=== PATIENT | male | born 1960 | race Caucasian/White ===

== ENCOUNTER 2020-09-26 20:32 | Observation (INO) | payer OTHER, SELFPAY ==
--- NOTE | ~2020-09-26 | XR_ITS ---
EXAMINATION: XR chest 1V portable INDICATION: Cough TECHNIQUE: Portable AP chest at 2223 hours COMPARISON: None available FINDINGS: The lungs are free of acute opacities. There is no pleural effusion or pneumothorax. The he art size is upper limits of normal for technique. IMPRESSION: 1. No acute cardiopulmonary abnormality. Reviewed, dictated and finalized at location A. ER PRODUCTION MACHINE OPERATOR
--- NOTE | ~2020-09-26 | CT_ITS ---
EXAMINATION: CT brain wo con INDICATION: Headache COMPARISON: None TECHNIQUE: Standard unenhanced head CT. The dose-length product (DLP) was 529.67 mGy-cm. The mA was a djusted according to patient size. Iterative reconstruction technique was employed. FINDINGS: There is no intracranial hemorrhage, acute infarction, or abnormal mass lesion. The ventric les are normal. There is no abnormal mass effect or midline shift. The bass-white matter differentiat ion is normal. The basal cisterns are patent. There appear to be changes of scleral buckle procedure in the left globe. There is mild mucosal thickening of the paranasal sinuses. IMPRESSION: 1. No acute intracranial abnormality. Reviewed, dictated and finalized at location A. LRY DIPPER
--- NOTE | ~2020-09-26 | CT_ITS ---
EXAMINATION: CTA chest PE protocol DATE: 09/26/2020 23:53 INDICATION: Cough and dizziness TECHNIQUE: Computed tomography angiography (CTA) of the chest was performed with 100 mL Omnipaque-350 intravenous contrast timed to evaluate the pulmonary arteries. Coronal maximum intensity projection 3D-reconstructions were created by the technologist. The dose-length product (DLP) was 288.72 mGy-cm. Automated exposure control and iterative reconstruction technique were employed. COMPARISON: None. FINDINGS: The pulmonary arteries are moderately well-opacified. Motion artifact slightly limits the e xamination as well. No pulmonary embolism is identified. Patchy groundglass opacities are scattered t hroughout the lungs. There is no pleural effusion or pneumothorax. No pathologically enlarged thoraci c lymph nodes are identified. The heart size is normal. There are bridging osteophytes at multiple le vels in the spine, consistent with diffuse idiopathic skeletal hyperostosis (DISH). IMPRESSION: 1. Patchy groundglass opacities throughout the lungs, likely infectious or inflammatory. No pulmonary embolus identified, sensitivity limited by contrast bolus timing and motion artifact. Reviewed, dictated and finalized at location A. CHISE SALES DIRECTOR IMPRESSION: 1. Patchy groundglass opacities throughout the lungs, likely infectious or infl ammatory. No pulmonary embolus identified, sensitivity limited by contrast bolu s timing and motion artifact.
[2020-09-26 20:41] VITALS: BP 177/102; PULSE 108; RESP 20; TEMP 37.1; O2SAT 99
--- NOTE | 2020-09-26 21:08 | ECG_ITS ---
Measurements Intervals [place] Rate: 89 P: 52 MD: 148 QRS: 60 QRSD: 101 T: 53 QT: 339 QTc: 414 Interpretive Statements SINUS RHYTHM POSSIBLE LEFT ATRIAL ENLARGEMENT BASELINE ARTIFACT- II, III, AVR, AVL, AVF, V1 BORDERLINE ECG Electronically Signed On 09-28-2020 7:17:36 DIRECTOR CONTENT MARKETING by Ilia Weston D.O.
[2020-09-26 21:52] LABS: Basophils Absolute Auto 0.02 K/mm3 (0.00-0.10); Basophils Percent Auto 0.3 % (0.0-1.0); Eosinophils Absolute Auto 0.08 K/mm3 (0.02-0.50); Eosinophils Percent Auto 1.3 % (1.0-6.0); Hematocrit 42.9 % (40.0-54.0); Hemoglobin 14.4 g/dL (14.0-18.0); Immature Granulocyte Absolute 0.02 K/mm3 (0.00-0.00); Immature Granulocyte Percent A 0.3 % (0.0-0.0); Lymphocytes Absolute Auto 2.28 K/mm3 (1.10-4.50); Lymphocytes Percent Auto 38.4 % (18.0-42.0); Mean Corpuscular HGB Conc 33.6 g/dL (32.0-36.0); Mean Corpuscular Hemoglobin 30.9 pg (27.0-31.0); Mean Corpuscular Volume 92.1 fL (78.0-102.0); Mean Platelet Volume 8.8 fl (8.7-11.0); Monocytes Absolute Auto 0.54 K/mm3 (0.10-0.90); Monocytes Percent Auto 9.1 % (2.0-11.0); Neutrophils Percent Auto 50.6 % (50.0-70.0); Platelet Count Result 310 K/mm3 (150-420); Red Blood Count 4.66 M/mm3 (4.70-6.10); Red Cell Distribution Width 13.3 % (11.6-14.4); White Blood Count 5.9 K/mm3 (4.8-10.8)
[2020-09-26 22:08] LABS: D Dimer 0.54 mg/L (0.19-0.50)
[2020-09-26 22:10] LABS: BNP 11.5 pg/mL (0-100)
[2020-09-26 22:18] LABS: Alanine Aminotransferase 48 U/L (16-63); Albumin Level 4.3 g/dL (3.4-5.0); Alkaline Phosphatase 64 U/L (46-116); Anion Gap 11 mmol/L (8-16); Aspartate Amino Transferase 24 U/L (15-37); Bilirubin,Total 0.2 mg/dL (0.00-1.00); Blood Urea Nitrogen 21 mg/dL (7-18); Calcium 9.2 mg/dL (8.5-10.1); Carbon Dioxide 28 mmol/L (21-32); Chloride 100 mmol/L (98-108); Estimated CRCL calculation 65 ml/min; Estimated Glomerular Filt Rate > 60; Glucose 123 mg/dL (70-99); Osmolality Calculated 292 mOsm/kg (285-295); Potassium 3.8 mmol/L (3.5-5.1); Sodium 139 mmol/L (136-145); Total Protein 8.1 g/dL (6.4-8.2)
[2020-09-26 22:20] LABS: Troponin I 7.5 ng/L (0.00-60.4)
[2020-09-26 22:32] LABS: SARS-CoV-2 Ag Negative (Negative)
--- NOTE | 2020-09-26 23:17 | PC.NURSE ---
pt up and ambulated to bathroom without dizziness or nausea. returned to room.
[2020-09-26 23:40] LABS: INR 0.9; Partial Thromboplastin Time 27.9 SEC (23.90-30.70); Prothrombin Time 10.3 Seconds (9.50-12.10)
[2020-09-27] MEDS: ASPIRIN 81 MG CHEWABLE TABLET 324 MG PO (00:07)
--- NOTE | 2020-09-27 00:34 | ED.DIZZY ---
HPI - Dizziness General Chief Complaint: Dizziness Stated Complaint: unknown Source: patient and family Mode of arrival: EMS Limitations: no limitations History of Present Illness HPI Narrative: Patient comes in complaining of vertigo, the room spinning and says while this was going on prior to discharge he felt weak and presyncopal. He also states he felt as if he were drunk when the vertigo started, and had an altered sense of balance. This sensation that he has been drunk has decreased some, in severity, but he remains with a sensation that he is impaired. He had a mild generalized sensation of weakness with the onset of this, just prior to arrival, but that has now passed. MD elicited complaint: dizziness Pertinent past history: other (TIA) Onset (ago): minute(s) (30 minutes) Timing: sudden onset Severity: moderate Description: sense of movement and lightheadedness Context: anxiety History of similar symptoms: No Exacerbating factors: nothing Relieving factors: rest Associated symptoms: denies other symptoms Related Data Home Medications Medication Instructions Recorded Confirmed No Home Medications 09/26/20 09/26/20 Allergies Allergy/AdvReac Type Severity Reaction Status Date / Time Penicillins Allergy Mild Unknown Verified 09/26/20 20:56 Review of Systems Constitutional: Constitutional: Reports no additional constitutional complaints Eyes: Eyes: Reports no additional eye complaints ENT: Reports system reviewed and no additional complaints, except as documented Cardiovascular: Cardiovascular: Reports no additional cardiovascular complaints Respiratory: Respiratory: Reports no additional respiratory complaints Gastrointestinal: Gastrointestinal: Reports no additional gastrointestinal complaints Genitourinary: Genitourinary: Reports no additional male genitourinary complaints Musculoskeletal: Musculoskeletal: Reports no additional musculoskeletal complaints Integumentary/Breasts: Skin/Breast: Reports system reviewed and no additional complaints, except as docu Neurologic: Reports system reviewed and no additional complaints, except as documented Psychiatric: Psychiatric: Reports no additional psychiatric complaints Endocrine: Endocrine: Reports no additional endocrine complaints Hematologic/Lymphatic: Hematologic/Lymphatic: Reports no additional hematologic/lymphatic complaints Allergic/Immunologic: Allergic/Immunologic: Reports no additional allergic/immunologic complaints PMFSH Past Medical History Medical History TIA (transient ischemic attack) Surgical History Surgical History (Updated 09/27/20 @ 00:46 by Hoang Avila MD) No significant past surgical history Family History Family History (Updated 09/27/20 @ 00:48 by Hoang Avila MD) Mother No significant past medical history Social History Social History (Updated 09/27/20 @ 00:50 by Hoang Avila MD) Smoking status: Never smoker Alcohol intake: never Gender identity (if verbalized by the patient): Male Exam Narrative: Exam Narrative: This gentleman resents with no focal weakness, no nystagmus, but with a sensation of feeling drunk. Const: General: no acute distress and alert Orientation/consciousness: patient oriented x3 HENMT: Head: normal to inspection Ears: TM's normal bilaterally and external ear abnormal General nose exam: Normal external nose present Face and sinus: normal facial exam Mouth: Yes moist mucous membranes Eyes: Conjunctivae: conjunctivae normal Neck: Neck: normal visual inspection and no lymphadenopathy Chest: Chest palpation & inspection: normal inspection of the chest Resp: Effort & Inspection: normal respiratory effort Auscultation: clear to auscultation bilaterally Cardio: Rate: regular rate Rhythm: regular rhythm GI: Auscultation: normal bowel sounds Skin: General skin exam: normal color Rashes: no rashes Neuro:
[2020-09-27 00:35] VITALS: BP 154/89; PULSE 91; RESP 20; TEMP 36.6; O2SAT 97
--- NOTE | 2020-09-27 00:48 | PC.NURSE ---
0045 pt to floor with MADAY Pierce per wheelchair. departed with all belongings, phone, and charge cord. no complaints of dizziness. pt is tired as he is an early to bed and early to rise kind of person per pt.
[2020-09-27 00:50] VITALS: BMI 27.5
--- NOTE | 2020-09-27 00:56 | PC.NURSE ---
Here for observation, to room 226, oriented to room, states here for evaluation for TIA, is alert and oriented x4, no pain denies any weakness, unknown how long admit will be
[2020-09-27 01:00] VITALS: BP 131/80; PULSE 84; PULSE 90; RESP 18; TEMP 36.8; O2SAT 96
--- NOTE | 2020-09-27 01:11 | PC.NURSE ---
Patient set u pfor shower, will place telemetry on when done
--- NOTE | 2020-09-27 01:44 | PC.NURSE ---
No pain, telemetry SR, resting quietly in bed, full rom noted to all extremities, no deficits noted
--- NOTE | 2020-09-27 03:00 | PC.NURSE ---
No pain, no sob, telemetry SR
[2020-09-27 03:43] VITALS: BP 114/72; PULSE 81; RESP 18; TEMP 36.7; O2SAT 95
--- NOTE | 2020-09-27 05:06 | PC.NURSE ---
Resting in bed, neuro checks within normal limits, telemetry SR, no pain and no sob noted
--- NOTE | 2020-09-27 06:22 | PC.NURSE ---
No chest pain, no sob, no neuro deficits noted, telemetry SR
[2020-09-27 08:00] VITALS: BP 123/77; PULSE 79; PULSE 88; RESP 18; TEMP 37.1; O2SAT 95
[2020-09-27] MEDS: ESCITALOPRAM OXALATE 10 MG TABLET 5 MG BY MOUTH (10:09)
[2020-09-27] MEDS: ASPIRIN 325 MG ENTERIC TABLET PO (10:10)
[2020-09-27] MEDS: ENOXAPARIN 40 MG/0.4 ML SYRINGE SUB-Q (10:10)
[2020-09-27 10:21] LABS: Amphetamine Screen Urine Negative (Negative); Barbiturate Screen Urine Negative (Negative); Benzodiazepines Screen Urine Negative (Negative); Cannabinoid Screen Urine Positive (Negative); Cocaine Screen Urine Negative (Negative); Methadone Screen Urine Negative (Negative); Opiate Screen Urine Negative (Negative); Phencyclidine Screen Urine Negative (Negative)
[2020-09-27 12:00] VITALS: PULSE 85
--- NOTE | 2020-09-27 12:05 | PM.SD ---
Same Day Admit/Disch: HPI History of Present Illness Chief complaint: unknown Narrative: Yuri Mallory is a 60 year old male came in for having dizzy episodes that lasted approximately 45 minutes. Patient states it felt like he had been drinking as the room was spinning. Patient states that he does not drink any does not do any drugs however his UDS was positive for marijuana. Upon evaluation this morning patient states that he has had no more symptoms denies any visual changes coordination issues dizziness speech problems breathing issues heart issues abdominal issues. [facility] Past Medical History Medical History (Updated 09/27/20 @ 12:18 by GONZALZE Xiong) Anxiety Dizziness TIA (transient ischemic attack) Surgical History Surgical History No significant past surgical history Family History Family History Mother No significant past medical history Social History Social History Smoking status: Never smoker Second hand tobacco smoke exposure: No Alcohol intake: never Substance use: never Gender identity (if verbalized by the patient): Male Spiritual care concerns: No Same Day Admit/Disch: Med Pre-admit Medications Home Medications Medication Instructions Recorded Confirmed Type [id number]-tenof alafen 1 tablet PO DAILY 09/27/20 09/27/20 History [Genvoya] escitalopram oxalate 5 mg DAILY 09/27/20 09/27/20 History Exam Const: General: cooperative, comfortable, no acute distress, alert, awake and Physically active Nutritional Appearance: average body habitus HENMT: Head: normal to inspection Ears: hearing grossly normal bilaterally General nose exam: Normal external nose present Face and sinus: normal facial exam Mouth: Yes Normal oral and palatal mucosa present Throat: posterior oropharynx normal Eyes: General: appearance normal, both eyes and all related structures Visual Freitas: normal visual freitas by confrontation Alignment and Position: alignment normal Eyelids: eyelids normal Pupils: Equal, round and reactive pupils present EOM: EOMs intact bilaterally Direct Ophthalmoscopy: normal light reflex Resp: Effort & Inspection: normal respiratory effort and able to speak in complete sentences Auscultation: clear to auscultation bilaterally, no crackles, no rales, no rhonchi and no wheezes Cardio: Rate: regular rate Heart sounds: S1 normal heart sound present and S2 normal heart sound present Neuro: General: oriented to person, oriented to place and oriented to time Cranial nerves: Yes CN's II-XII intact bilaterally Cognition (Neuro): normal cognition Speech: normal speech Coordination: [id number] test normal Extrem: General: full ROM and no pedal edema Psych: Appearance: grossly normal Speech and movement: Normal speech and movement present Affect: normal affect Attitude: cooperative Thought process: Normal thought process present Thought content: Yes Normal thought content present DS: Data Data Completed and Pending Labs on day of discharge: Labs from last 24 hours 09/27/20 09/26/20 09/26/20 09:35 23:25 21:42 WBC RBC Hgb Hct MCV MCH MCHC RDW Plt Count MPV Immature Gran % (Auto) Neut % (Auto) Lymph % (Auto) Terry % (Auto) Eos % (Auto) Baso % (Auto) Lymph # (Auto) Terry # (Auto) Eos # (Auto) Baso # (Auto) Abs Immat Gran (auto) Absolute Neuts (auto) Absolute Nucleated RBC Nucleated RBC % PT 10.3 INR 0.9 APTT 27.9 D-Dimer Sodium Potassium Chloride Carbon Dioxide Anion Gap BUN Creatinine Estim Creat Clear Calc Estimated GFR Glucose Calculated Osmolality Calcium Total Bilirubin AST ALT Alkaline Phosphatase Troponin I B-Natri
--- NOTE | 2020-09-27 13:13 | PC.NURSE ---
Patient dressing. Discharge complete
--- NOTE | 2020-09-29 11:29 | PC.NURSE ---
Unable to contact for discharge call back.
== END 2020-09-27 13:30 | disposition home or self-care (01) ==
LOC: CHSED 20:37 → CHS2ND 09-27 00:58
PROVIDERS: Nurse Practitioner Family; Admitting Provider Emergency Medicine; Emergency Provider Emergency Medicine; Visit Provider Emergency Medicine
DX: R42 Dizziness and giddiness (principal); F41.9 Anxiety disorder, unspecified; Z20.822 Contact with and (suspected) exposure to COVID-19; Z86.73 Personal history of transient ischemic attack (TIA), and cerebral infarction without residual deficits
CPT/HCPCS: 36415; 70450; 71045; 71275; 80053; 80307; 83880; 84484; 85025; 85380; 85610; 85730; 87426; 93005; 96372; 99285; A9270; C9803; G0378; J1650; Q9967

== ENCOUNTER 2020-11-16 12:27 | Outpatient (CLI) | payer OTHER, SELFPAY ==
--- NOTE | 2020-11-16 | ECHO_ITS ---
Patient Info Name: Yuri Mallory Age: 60 years : 1960 Gender: Male Ht: 68 in Wt: 179 lbs BSA: 1.99 m2 HR: 72 bpm BP: 152 / 104 mmHg Heart Rhythm: Sinus Rhythm Technical Quality: Good Exam Date: 11/16/2020 12:56 PM Exam Location: [facility] Patient Status: Outpatient Admit Date: 11/16/2020 Staff Ordering Physician: ShakirCheryl Corrugator Operator Helper: Margarita Ramirez RDCS Attending Provider: Shakir, Cheryl LOMELI Referring Physician: Shakir YIN; Exam Type: CA echo doppler color flow Study Info Indications R01.1 - Cardiac murmur, unspecified Complete two-dimensional, color flow and Doppler transthoracic echocardiogram is performed. Summary 1. Complete two-dimensional, color flow and Doppler transthoracic echocardiogram is performed. 2. The mitral valve has normal leaflets. 3. There is trace mitral valve regurgitation. 4. Otherwise unremarkable exam. Left Ventricle Left ventricular chamber dimension is normal. Left ventricular systolic function is normal, estimated at 55-60%. The left ventricular diastolic function is grade I diastolic dysfunction. Right Ventricle Right ventricular chamber dimension is normal. Left Atria Left atrial chamber dimension is normal. Right Atria Right atrial chamber dimension is normal. Aortic Valve The aortic valve is normal. Pulmonic Valve The pulmonic valve is normal. Mitral Valve The mitral valve has normal leaflets. There is trace mitral valve regurgitation. Tricuspid Valve The tricuspid valve leaflets are normal. Pericardium/Pleural The pericardium appears normal. Aorta The aortic root size at the sinus of Valsalva is normal. Left Ventricular Outflow Tract Name Value Normal LVOT 2D LVOT Diameter 1.9 cm LVOT Doppler LVOT Peak Gradient 6 mmHg LVOT Mean Gradient 3 mmHg LVOT VTI 23 cm LVOT VTI/AV VTI Ratio 1.0 LVOT Stroke Volume 64 ml LVOT CO 5.2 l/min LVOT CI 2.6 l/min/m2 Pulmonic Valve Name Value Normal RVOT Doppler RVOT Peak Gradient 2 mmHg PV Doppler PV Peak Gradient 3 mmHg Mitral Valve Name Value Normal MV Doppler MV Decel [place] 382 cm/s2 MV PHT 43 ms MV Area (PHT) 5.1 cm2 4.0-5.0
--- NOTE | 2020-11-16 14:10 | PCCARD ---
PATIENT STATES HIS BIRTHDAY IS 1960. PHYSICIAN ORDER AND PATIENTS INSURANCE ([employer] [facility]) HAS HIS BIRTHDAY 09/05/1961. PATIENT STATES HE HAS TRIED NUMEROUS TIMES TO HAVE THE INSURANCE CHANGE HIS BIRTHDAY TO CORRECT BIRTHDAY OF 1960. HE HAS GIVEN COPIES OF HIS CERTIFICATE TO [facility] BUT THEY STILL HAVE NOT/WILL NOT CORRECT IN THEIR RECORDS.
== END 2020-11-16 12:28 | disposition home or self-care (01) ==
LOC: ANHCARD 12:30
PROVIDERS: Visit Provider Physician Assistant
DX: R01.1 Cardiac murmur, unspecified (principal)
CPT/HCPCS: 93306

== ENCOUNTER 2021-01-29 16:07 | Outpatient (CLI) | payer OTHER, SELFPAY ==
--- NOTE | ~2021-01-29 | XR_ITS ---
EXAMINATION: SACRUM/COCCYX DATE: 01/29/2021 16:29 INDICATION: Coccyx pain status post recent fall TECHNIQUE: Three views sacrum/coccyx FINDINGS: No prior studies for comparison. There is no displaced fracture of the sacrum. The coccyx demonstrates overall normal morphology with out acute angulation.There is moderate lower lumbar spondylosis. IMPRESSION: 1. No acute displaced osseous abnormality of the sacrum. Suspicion for occult or nondisplaced sacral fracture can either be evaluated with CT or MRI. 2. Grossly normal morphology to the coccyx without acute angulation. However, due to the wide range of normal variation of the coccyx, acute injury would be best evaluated by clinical examination and patient's symptoms. Reviewed, dictated and finalized at location A.
== END 2021-01-29 16:08 | disposition home or self-care (01) ==
LOC: ANHIMG 16:10
PROVIDERS: PCP Physician Assistant; Visit Provider Physician Assistant
DX: M53.3 Sacrococcygeal disorders, not elsewhere classified (principal); M47.816 Spondylosis without myelopathy or radiculopathy, lumbar region
CPT/HCPCS: 72220

== ENCOUNTER 2023-11-03 10:27 | Emergency (ER) | payer OTHER, SELFPAY ==
--- NOTE | ~2023-11-03 | XR_ITS ---
EXAMINATION: XR wrist RT min 3V DATE: 11/03/2023 11:55 INDICATION: Right wrist pain. Ganglion cyst. TECHNIQUE: 4 views of right wrist were obtained. COMPARISON: None. FINDINGS: Bone alignment is normal. No fracture. There is severe osteoarthritis of first carpometacar pal joint and triscaphe joint. IMPRESSION: 1. Polyarticular osteoarthritis. Reviewed, dictated and finalized at location A. CIATE PROFESSOR OF PSYCHOLOGY
[2023-11-03 10:50] VITALS: BP 147/88; PULSE 82; RESP 16; TEMP 36.4; O2SAT 99
--- NOTE | 2023-11-03 11:18 | ED.SKABFB ---
HPI - Skin/Abscess/Foreign Bdy General Chief complaint: Skin/Abscess/Foreign Body Stated complaint: CYST Time Seen by Provider: 11/03/23 10:49 Source: patient Mode of arrival: ambulatory Limitations: no limitations History of Present Illness HPI narrative: Yuri is a 63-year-old male patient presenting to the ER today with complaints of a cyst to his right volar wrist. He reports that is been going on for about a month or 2. States his becoming bigger and more painful in size. Is having some radiation of pain to his thumb. Related Data Home Medications Medication Instructions Recorded Confirmed elviteg 150 mg-cob 150 mg-emtricit 1 tablet PO DAILY 09/27/20 09/27/20 200 mg-tenofo alafenam 10 mg tablet (Genvoya) escitalopram oxalate 5 mg tablet 5 mg DAILY 09/27/20 09/27/20 Allergies Allergy/AdvReac Type Severity Reaction Status Date / Time Penicillins Allergy Mild Unknown Verified 09/26/20 20:56 Review of Systems Review of Systems: Pertinent positives per HPI. Patient denies any fever, chills, rash, headache, visual changes, dizziness, cough, runny nose, sore throat, shortness of breath, chest pain, palpitations, nausea, vomiting, diarrhea, constipation, abdominal pain, or any urinary issues. PMFSH Past Medical History Medical History Anxiety Dizziness TIA (transient ischemic attack) Surgical History Surgical History No significant past surgical history Family History Family History Mother No significant past medical history Social History Social History Smoking status: Never smoker Second hand tobacco smoke exposure: No Alcohol intake: never Substance use: never Gender identity (if verbalized by the patient): Male Spiritual care concerns: No Comments At the time of my signature, I reviewed and agree with the nursing past medical, surgical, social, and family history. There is no relevant family history pertinent to the patient complaint. Exam Narrative: General: Well-developed, well nourished, in no apparent distress Head: Normocephalic, atraumatic. Cardio: Regular rate and rhythm, s1 and s2 normal, no murmur appreciated. Resp: Clear to auscultation bilaterally, no rhonchi, rales, wheezing or rubs. Integumentary: [place], warm, and dry, intact without lesion, firm cyst-like lesion to the right volar radial wrist, mild tenderness to palpation without redness, erythema or swelling, no discharge, area measures 1.5 x 1.5cm Course Course Emergency Course: Portions of this record may have been created with voice recognition software. Vital Signs Vital signs: Vital Signs Temperature 36.4 C L 11/03/23 10:50 Pulse Rate 82 11/03/23 10:50 Respiratory Rate 16 11/03/23 10:50 Blood Pressure 147/88 H 11/03/23 10:50 Pulse Oximetry 99 11/03/23 10:50 Oxygen Delivery Room Air 11/03/23 10:50 Temperature 36.4 C L 11/03/23 10:50 Pulse Rate 82 11/03/23 10:50 Respiratory Rate 16 11/03/23 10:50 Blood Pressure 147/88 H 11/03/23 10:50 Pulse Oximetry 99 11/03/23 10:50 Oxygen Delivery Room Air 11/03/23 10:50 Vital signs reviewed MDM - Skin/Abscess/Foreign Bdy MDM Narrative Medical decision making narrative: At the time of visit patient is resting comfortably on the exam table. Patient appears to be nontoxic. Diagnostics: X-ray shows polyarticular arthritis without mention of a ganglial cyst. Plan: Recommend follow-up with Dr. Whitehead for removal of cutaneous wrist cyst. Supportive measures were discussed with the patient and they voiced understanding discharge instructions and agrees to treatment plan. Return precautions reviewed Differential Diagnosis Differential diagnosis: Likely other (Cutaneous cyst, g
== END 2023-11-03 12:44 | disposition home or self-care (01) ==
PROVIDERS: Emergency Provider Nurse Practitioner Family; PCP Physician Assistant
DX: L72.9 Follicular cyst of the skin and subcutaneous tissue, unspecified (principal); F41.9 Anxiety disorder, unspecified; Z86.73 Personal history of transient ischemic attack (TIA), and cerebral infarction without residual deficits; M19.031 Primary osteoarthritis, right wrist; M18.9 Osteoarthritis of first carpometacarpal joint, unspecified
CPT/HCPCS: 73110; 99283

== ENCOUNTER 2023-11-27 09:40 | Outpatient (CLI) | payer OTHER, SELFPAY ==
--- NOTE | ~2023-11-27 | XR_ITS ---
EXAMINATION: XR hand RT min 3V DATE: 11/27/2023 09:55 INDICATION: Localized swelling, mass and lump, right hand. TECHNIQUE: 3 views of right hand were obtained. COMPARISON: Right wrist radiographs 11/03/2023 FINDINGS: There is ulnar subluxation and angulation of second distal phalanx with respect to the midd le phalanx. No fracture. There is severe osteoarthritis of triscaphe joint, first carpometacarpal ad nt, and second-fifth distal interphalangeal joints. There is mild osteoarthritis of many of the metac arpophalangeal joints and interphalangeal joints. There is moderate osteoarthritis of first metacarpo phalangeal joint. IMPRESSION: 1. Polyarticular osteoarthritis. Reviewed, dictated and finalized at location E.
== END 2023-11-27 09:41 | disposition home or self-care (01) ==
LOC: ANHIMG 09:42
PROVIDERS: PCP Physician Assistant; Visit Provider Plastic Surgery
DX: R22.31 Localized swelling, mass and lump, right upper limb (principal); M19.041 Primary osteoarthritis, right hand
CPT/HCPCS: 73130

== ENCOUNTER 2023-12-04 13:21 | Outpatient (CLI) | payer OTHER, SELFPAY ==
--- NOTE | ~2023-12-04 | US_ITS ---
EXAMINATION: US soft tissue UE RT DATE: 12/04/2023 15:01 INDICATION: Palpable lump at the anterior right wrist TECHNIQUE: Multiple grayscale and Doppler ultrasound images of the abdomen were obtained. COMPARISON: None FINDINGS: There are couple anechoic loculated fluid collections at the region of concern, the larger measuring 2.3 x 0.8 x 1.1 cm and partially wrapped prominent one side of one of the flexor tendons and favor a ganglion cyst over fluid within the tendon sheath. There is a second smaller 6 x 5 x 4 mm anechoic fl uid collection likely representing a second ganglion cyst. IMPRESSION: 1. A couple anechoic loculated fluid collections likely representing ganglion cysts at the volar aspe ct of the wrist, the larger measuring 2.3 x 0.8 x 1.1 cm. Reviewed, dictated and finalized at location A. IMPRESSION: 1. A couple anechoic loculated fluid collections likely representing ganglion c ysts at the volar aspect of the wrist, the larger measuring 2.3 x 0.8 x 1.1 cm.
== END 2023-12-04 13:22 | disposition home or self-care (01) ==
LOC: ANHIMG 13:24
PROVIDERS: PCP Physician Assistant; Visit Provider Plastic Surgery
DX: R22.31 Localized swelling, mass and lump, right upper limb (principal)
CPT/HCPCS: 76882

== ENCOUNTER 2024-09-05 07:00 | Outpatient (NON) | payer OTHER, SELFPAY | END 2024-09-05 07:01 | disposition home or self-care (01) | PROVIDERS: Visit Provider Plastic Surgery | DX: R22.31 Localized swelling, mass and lump, right upper limb (principal) | CPT/HCPCS: 88305 ==

== ENCOUNTER 2024-09-05 07:50 | Day surgery (SDC) | payer OTHER, SELFPAY ==
[2024-08-16 12:03] VITALS: BMI 27.1
--- NOTE | 2024-09-05 06:55 | P.HPUP_ITS ---
History and Physical Update Update Date/Time: 09/05/24 06:55 Patient seen and examined in pre-operative holding area. No interval change in medical history or symptoms. Patient recalls previous discussion of benefits and alternatives to procedure. Continues to desire to proceed with right volar wrist ganglion excision . Reviewed procedure, post-op expectations and risks including but not limited to bleeding, infection, injury to tendon/nerve/vessel, decreased hand function, stiffness, RSD, no change or worsening of symptoms, recurrence. I discussed the possible use of assistants and their participation in the case. Patient stated understanding and signed the consent form wishing to proceed.
--- NOTE | 2024-09-05 06:55 | P.OP_ITS ---
Procedure Note - Detailed Date of Procedure 09/05/24 Pre-op Diagnosis Ganglion Cyst Right Volar Wrist Post-op Diagnosis Same Procedure Performed right volar wrist ganglion excision Surgeon Adia Whitehead MD Property Management Supervisor deirdre daley pa-c Anesthesia MAC Description of Procedure INFORMED CONSENT: The patient was seen and examined and marked in the pre-op area.? The patient signed the consent form. PROCEDURE IN DETAIL:The patient taken back to OR on the stretcher in supine position. Time out performed with anesthesia, surgeon and staff agreeing on patient's name site and surgery to be performed SCDs were placed on the lower extremities and inflated. A tourniquet was placed on {right} upper extremity and antibiotics given IV After anesthesia administered sedation I injected {5}cc 1%lido with epi and 0.5% marcaine plain at the operative site The?{right upper extremity}?was prepped and draped in sterile fashion the??{right upper extremity} was? exsanguinated with Esmarch bandage proximal to the mass and tourniquet inflated to 250mmHg I proceeded with making a longitudinal incision over the right volar wrist mass through skin and dermis with a 15 blade scalpel. Littler scissors were used to spread through subcutaneous tissue down to the ganglion cyst. I proceeded with circumferential dissection of the cyst which appeared to be originating from the volar wrist capsule just ulnar to the flexor carpi radialis. No palmar cutaneous nerve branch was identified in the plane of dissection. I transected the stalk of the ganglion with bipolar cautery at the wrist capsule though no clear capsular defect was identified after resection.. I irrigated with normal saline. I closed with 4-0 Vicryl for dermis and 4-0 Monocryl for subcuticular closure. A dressing of Dermabond, 4x4, madison, and a volar splint was applied for patient safety, security, and comfort and secured with an bella bandage after the tourniquet was let down noting the hand was warm and well perfused. The patient was then awaken from anesthesia and transferred to the recovery room in stable condition.? Complications - none EBL- 0cc Disposition - home in stable conditions Deirdre Daley PA-C was essential for positioning, retraction, closure and dressing placement [facility] [place] Billing Surgery - Charge Forward: Surgery Billing ([id number] for deirdre)
--- NOTE | 2024-09-05 06:57 | PM.HPGS ---
History of Present Illness History of Present Illness Chief complaint: Ganglion Cyst Right Volar Wrist Narrative: Patient seen and examined in pre-operative holding area. No interval change in medical history or symptoms. Patient recalls previous discussion of benefits and alternatives to procedure. Continues to desire to proceed with right volar wrist ganglion excision . Reviewed procedure, post-op expectations and risks including but not limited to bleeding, infection, injury to tendon/nerve/vessel, decreased hand function, stiffness, RSD, no change or worsening of symptoms, recurrence. I discussed the possible use of assistants and their participation in the case. Patient stated understanding and signed the consent form wishing to proceed. Review of Systems Review of Systems: All systems reviewed & are unremarkable except as noted in HPI and below PMFSH Past Medical History Medical History (Updated 09/03/24 @ 07:52 by Rocky Kline DO) HIV (human immunodeficiency virus infection) undetectable Anxiety Dizziness TIA (transient ischemic attack) Surgical History Surgical History No significant past surgical history Family History Family History Mother No significant past medical history Social History Social History Smoking status: Never smoker Second hand tobacco smoke exposure: No Alcohol intake: never Substance use: never Substance use type: does not use Living arrangements: alone Gender identity (if verbalized by the patient): Male Spiritual care concerns: No Meds Home Medications and Allergies Home Medications ?Medication ?Instructions ?Recorded ?Confirmed ?Type aspirin 81 mg capsule 81 mg PO DAILY 08/16/24 09/05/24 History bictegravir 50 mg-emtricitabine 1 tablet PO DAILY 08/16/24 09/05/24 History 200 mg-tenofovir alafenam 25 mg tablet (Biktarvy) tramadol 50 mg tablet 50 mg PO Q6H PRN pain #12 tabs 09/05/24 Rx Allergies Allergy/AdvReac Type Severity Reaction Status Date / Time Penicillins Allergy Severe Anaphylaxis Verified 09/05/24 08:17 Exam Narrative: unchanged Assessment and Plan Assessment and plan (1) Localized swelling, mass and lump, right upper limb: Code(s): R22.31 - Localized swelling, mass and lump, right upper limb Status: Acute Assessment and Plan: cont as above
[2024-09-05 08:21] VITALS: BMI 26.6
[2024-09-05 08:22] VITALS: BP 131/99; PULSE 80; RESP 18; TEMP 36.4; O2SAT 99
[2024-09-05] MEDS: LACTATED RINGERS 1,000 ML 30 ML IV CONT (08:43)
--- NOTE | 2024-09-05 09:47 | WPDANESEPPF ---
Anes - Initial Pre Proc Eval Procedure: Operation Date: 09/05/24 10:00 Proposed Procedures p Excision Ganglion Cyst Right Volar Wrist - Adia Whitehead MD Date/Time: 09/05/24 09:47 Surgeon: Adia Whitehead MD Pre Op Diagnosis: Ganglion Cyst Right Volar Wrist Patient Data Age: 64 Gender: M Height: 1.73 m Weight: 79.4 kg Last Vital Signs Temp 36.4 C L 09/05/24 08:22 Pulse 80 09/05/24 08:22 Resp 18 09/05/24 08:22 BP 131/99 H 09/05/24 08:22 Pulse Ox 99 09/05/24 08:22 O2 Del Method Room Air 09/05/24 08:22 Allergies Allergy/AdvReac Type Severity Reaction Status Date / Time Penicillins Allergy Severe Anaphylaxis Verified 09/05/24 08:17 Home Medications ?Medication ?Instructions ?Recorded ?Confirmed ?Type aspirin 81 mg capsule 81 mg PO DAILY 08/16/24 09/05/24 History bictegravir 50 mg-emtricitabine 1 tablet PO DAILY 08/16/24 09/05/24 History 200 mg-tenofovir alafenam 25 mg tablet (Biktarvy) tramadol 50 mg tablet 50 mg PO Q6H PRN pain #12 tabs 09/05/24 Rx Patient hx anesthesia problems: none Family hx anesthesia problems: none Results Review: All pre-operative results and documents have been reviewed as part of the pre-operative evaluation. [facility] Past Medical History Medical History (Updated 09/03/24 @ 07:52 by Rocky Kline DO) HIV (human immunodeficiency virus infection) undetectable Anxiety Dizziness TIA (transient ischemic attack) Surgical History Surgical History No significant past surgical history Family History Family History Mother No significant past medical history Social History Social History Smoking status: Never smoker Second hand tobacco smoke exposure: No Alcohol intake: never Substance use: never Substance use type: does not use Living arrangements: alone Gender identity (if verbalized by the patient): Male Spiritual care concerns: No Anes - Eval Final PreProcedure Day of Procedure 09/05/24 09:47 Patient weight: overweight Heart: regular rate and rhythm Lungs: clear to auscultation Airway: Mallampati scale class II Neurological: alert and oriented Last oral intake: >/= 8 hours ASA classification: III Emergent: no Anesthetic plan: proceed Anesthesia type and monitoring: general GIVS and standard monitoring Results Review: All pre-operative results and documents have been reviewed as part of the pre-operative evaluation. Informed Consent: The patient's anesthetic plan and its attendant risks and benefits were discussed with the patient/family/POA. Questions were solicited and answers provided to the satisfaction of the patient/family/POA.
[2024-09-05] MEDS: ceFAZolin SODIUM 2 GM/20 ML SW SYRINGE IV PUSH (09:57)
[2024-09-05] MEDS: BUPivacaine HCL 0.5% PF 30 ML VIAL 4 ML INFILTRATE (10:00)
[2024-09-05 10:23] VITALS: BP 118/86; PULSE 88; RESP 15; O2SAT 98
--- NOTE | 2024-09-05 10:30 | WPDANESPN ---
Anes - Prog Note Post-Op Date/Time: 09/05/24 10:30 Cardiovascular status: normal Respiratory status: normal Airway patency: baseline Mental status: baseline Post-Op hydration status: normal Vital Signs: Last Vital Signs Temp 36.4 C L 09/05/24 08:22 Pulse 80 09/05/24 08:22 Resp 18 09/05/24 08:22 BP 131/99 H 09/05/24 08:22 Pulse Ox 99 09/05/24 08:22 O2 Del Method Room Air 09/05/24 08:22 Pain Score (VAS): 0 Post-procedural complaints: none Patient Feedback: Patient satisfied with anesthetic care. Other Findings: Patient vital signs back to baseline. Patient denies nausea and vomiting. Patient's pain under control. Patient OK for discharge.
[2024-09-05 10:33] VITALS: BP 122/88; PULSE 77; RESP 15; O2SAT 100
[2024-09-05 10:43] VITALS: BP 144/81; PULSE 74; RESP 16; O2SAT 96
[2024-09-05 10:53] VITALS: BP 138/91; PULSE 78; RESP 14; O2SAT 96
== END 2024-09-05 11:10 ==
PROVIDERS: Visit Provider Plastic Surgery
CPT/HCPCS: 25111